=== PATIENT | male | born 1975 | race Caucasian/White ===

== ENCOUNTER 2017-06-20 12:55 | Emergency (ER) | payer OTHER ==
[~2017-06-20] VITALS: Ht 190.5 cm; Wt 120.2 kg
[2017-06-20 13:04] VITALS: BP 112/66
[2017-06-20] MEDS ORDERED: TDAP [DIPH/PERTUSSIS/TET] 0.5 ML VIAL IM ONE ×2 (13:57→14:00)
[2017-06-20] MEDS ORDERED: LIDOCAINE HCL/PF 1% 30 ML VIAL TP ONE (14:00)
--- NOTE | 2017-06-20 14:55 | NUR ---
LIDOCAINE NOT USED, SKINAFFIX APPLIED TO PATIENT'S CUT.
== END 2017-06-20 14:57 | disposition home or self-care (01) ==
LOC: ER 13:01
DX: S91.311A Laceration without foreign body, right foot, initial encounter (principal); W22.8XXA Striking against or struck by other objects, initial encounter; Y93.89 Activity, other specified; Y92.89 Other specified places as the place of occurrence of the external cause; Y99.8 Other external cause status
CPT/HCPCS: 12002; 90471; 90715; 99283; A4606; A6402; J3490; Z7610